=== PATIENT | female | born 1980 | race Caucasian/White ===

== ENCOUNTER 2019-04-18 12:16 | Emergency (ER) | payer MEDICAID ==
[~2019-04-18] VITALS: Ht 157.5 cm; Wt 56.7 kg
[2019-04-18 12:24] VITALS: BP 130/81
[2019-04-18] MEDS ORDERED: predniSONE 20 MG TABLET ONE (12:58)
[2019-04-18] MEDS ORDERED: predniSONE 20 MG TABLET PO ONE (13:00)
== END 2019-04-18 13:02 | disposition home or self-care (01) ==
LOC: ER 12:17
DX: L29.0 Pruritus ani (principal)
CPT/HCPCS: 99283; J7512

== ENCOUNTER 2020-03-11 12:08 | Emergency (ER) | payer MEDICAID ==
[~2020-03-11] VITALS: Ht 157.5 cm; Wt 58.5 kg
[2020-03-11 13:01] VITALS: BP 126/87
--- NOTE | 2020-03-11 14:39 | NUR ---
Patient discharged to home in stable condition. Written and verbal after care instructions given. Patient verbalizes understanding of instruction.
== END 2020-03-11 14:42 | disposition home or self-care (01) ==
LOC: ER 12:11
DX: H66.91 Otitis media, unspecified, right ear (principal)

== ENCOUNTER 2022-07-28 22:11 | Emergency (ER) | payer MEDICAID ==
[~2022-07-28] VITALS: Ht 154.9 cm; Wt 57.6 kg
[2022-07-28] MEDS ORDERED: MECLIZINE HCL 12.5 MG TABLET PO ONE (22:30)
--- NOTE | 2022-07-28 22:31 | NUR ---
URINE COLLECTED AND SENT TO LAB
--- NOTE | 2022-07-28 22:31 | NUR ---
Katy leyva in [facility] - 07/28/22 at 2242 by SARA HOPPER ATTENDANT AT PT'S BEDSIDE
[2022-07-28] MEDS ORDERED: MECLIZINE HCL 25 MG TABLET ONE (22:32)
--- NOTE | 2022-07-28 22:35 | NUR ---
EKG DONE, STRIP ATTACHED TO CHART.
--- NOTE | 2022-07-28 22:43 | NUR ---
EDUCATIONAL SPECIALIST AT BEDSIDE
[2022-07-28 23:02] LABS: BASOPHILS % (AUTO) 0.2 % (0.0-2.0); EOSINOPHILS % (AUTO) 0.1 % (0.0-6.0); HEMATOCRIT 41 % (33-45); HEMOGLOBIN 13.5 g/dL (11.5-14.8); LYMPHOCYTES # (AUTO) 2.1 K/uL (0.8-4.8); LYMPHOCYTES % (AUTO) 29.3 % (20.0-44.0); MEAN CORPUSCULAR HGB CONC 33 g/dl (31.0-36.0); MEAN CORPUSCULAR VOLUME 87 fL (82-100); MONOCYTES # (AUTO) 0.5 K/uL (0.1-1.30); MONOCYTES % (AUTO) 7.5 % (2.0-12.0); NEUTROPHILS # (AUTO) 4.5 K/uL (1.8-8.9); NEUTROPHILS % (AUTO) 62.9 % (43.0-81.0); PLATELET COUNT (AUTO) 337 K/uL (150-450); RED BLOOD CELL COUNT(AUTO) 4.73 MIL/uL (4.0-5.2); WHITE BLOOD COUNT (AUTO) 7.2 K/uL (4.3-11.0)
[2022-07-28 23:17] LABS: CALCIUM, SERUM 9.7 mg/dL (8.5-10.1); CREATININE 0.6 mg/dL (0.6-1.3); POTASSIUM 3.4 mmol/L (3.5-5.1)
[2022-07-29] MEDS ORDERED: MECL-159 PO (00:20)
[2022-07-29 00:27] VITALS: BP 122/71
--- NOTE | 2022-07-29 00:27 | NUR ---
Patient discharged to home in stable condition. Written and verbal after care instructions given. Patient verbalizes understanding of instruction.
== END 2022-07-29 00:35 | disposition home or self-care (01) ==
LOC: ER 22:18
DX: R42 Dizziness and giddiness (principal); Z79.899 Other long term (current) drug therapy
CPT/HCPCS: 99284; 93005; 85025; 80048; 84703; 36415; J8597